=== PATIENT | male | born 1985 | race Caucasian/White ===

== ENCOUNTER 2020-04-02 10:33 | Inpatient (IN) | payer MEDICAID, OTHER ==
[~2020-04-02] VITALS: Ht 170.2 cm; Wt 71.7 kg
[2020-04-02] MEDS ORDERED: SODIUM CHLORIDE 0.9% 1,000 ML IV ONE ×2 (11:07→12:51)
[2020-04-02 11:24] LABS: CLARITY URINE CLEAR (CLEAR); COLOR URINE DARK YELLOW (YELLOW); KETONES URINE 3+ (NEGATIVE); LEUKOCYTE ESTERASE URINE TRACE (NEGATIVE); NITRITE URINE NEGATIVE (NEGATIVE); OCCULT BLOOD URINE 2+ (NEGATIVE); PROTEIN URINE 2+ (NEGATIVE)
[2020-04-02 11:28] LABS: CHLORIDE 104 mEq/L (98-107)
[2020-04-02 11:32] LABS: ETHANOL BLOOD < 10 mg/dL
[2020-04-02 11:42] LABS: BASOPHILS % 0.2 % (0.0-2.0); EOSINOPHILS % 0.4 % (0.0-5.0); HEMATOCRIT. 44.9 % (42.0-52.0); HEMOGLOBIN. 15.2 g/dL (14.0-18.0); LYMPHOCYTES % 10.1 % (20.0-50.0); MEAN CORPUSCULAR HEMOGLOBIN 29.6 pg (28.0-32.0); MEAN CORPUSCULAR VOLUME 87.6 fL (80.0-94.0); MONOCYTES % 8.3 % (2.0-8.0); PLATELET 216 x1000/uL (130-400); RED BLOOD CELL COUNT 5.12 mill/uL (4.7-6.1)
[2020-04-02 11:48] LABS: CREATINE KINASE 2195 IU/L (39-308)
[2020-04-02 12:08] LABS: *AMPHETAMINES SCREEN URINE NEGATIVE (NEGATIVE); *BARBITURATES SCREEN URINE NEGATIVE (NEGATIVE); *BENZODIAZEPINES SCREEN URINE NEGATIVE (NEGATIVE); *COCAINE SCREEN URINE NEGATIVE (NEGATIVE); CANNABINOID URINE SCREEN PRESUMTIVE POSITIVE (NEGATIVE); METHADONE URINE SCREEN NEGATIVE (NEGATIVE); OPIATES URINE SCREEN NEGATIVE (NEGATIVE); PHENCYCLIDINE URINE SCREEN NEGATIVE (NEGATIVE)
[2020-04-02] MEDS ORDERED: DOCUSATE SODIUM 100MG CAPSULE PO PRN (15:00)
[2020-04-02] MEDS ORDERED: ACETAMINOPHEN 325MG TABLET PO PRN (15:00)
[2020-04-02] MEDS ORDERED: MAGNESIUM/ALUMINUM HYDROXIDE/SIMETHICONE 30ML UDC PO PRN (15:00)
[2020-04-02] MEDS ORDERED: CLONIDINE 0.1MG TABLET PO PRN (15:00)
[2020-04-02] MEDS ORDERED: GUAIFENESIN 200MG/10ML SUGAR FREE UDC PO PRN (15:00)
[2020-04-02] MEDS: SODIUM CHLORIDE 0.9% 1,000 ML IV SCH (16:10)
[2020-04-02] MEDS: LORAZEPAM 2MG/ML CPJ IV PRN (19:29)
[2020-04-02 23:59] LABS: CREATINE KINASE 2320 IU/L (39-308)
[2020-04-03] MEDS: HYDROMORPHONE HCL/PF 2MG/ML CPJ IV PRN ×2 (00:16→01:16)
[2020-04-03 05:42] LABS: BASOPHILS % 0.5 % (0.0-2.0); EOSINOPHILS % 2.6 % (0.0-5.0); HEMATOCRIT. 38.5 % (42.0-52.0); HEMOGLOBIN. 13.1 g/dL (14.0-18.0); LYMPHOCYTES % 24.1 % (20.0-50.0); MEAN CORPUSCULAR HEMOGLOBIN 30.3 pg (28.0-32.0); MEAN CORPUSCULAR VOLUME 88.7 fL (80.0-94.0); MEAN PLATELET VOLUME 8.5 fl (7.4-10.4); MONOCYTES % 10.8 % (2.0-8.0); PLATELET 167 x1000/uL (130-400); RED BLOOD CELL COUNT 4.33 mill/uL (4.7-6.1); RED CELL DISTRIBUTION WIDTH 13.9 % (11.6-14.6)
[2020-04-03 05:54] LABS: CHLORIDE 109 mEq/L (98-107)
[2020-04-03 06:17] LABS: CREATINE KINASE 1947 IU/L (39-308)
[2020-04-03] MEDS: SODIUM CHLORIDE 0.9% 1,000 ML IV SCH ×2 (10:56→11:20)
[2020-04-03] MEDS: DEXT 5%/0.45% NACL 1000ML 1,000 ML IV SCH (12:00)
[2020-04-04] MEDS: DEXT 5%/0.45% NACL 1000ML 1,000 ML IV SCH ×2 (01:39→12:39)
[2020-04-04 09:00] VITALS: BP 146/78
[2020-04-04] MEDS: LORAZEPAM 2MG/ML CPJ IV PRN (11:15)
[2020-04-04] MEDS: HYDROMORPHONE HCL/PF 2MG/ML CPJ IV PRN (12:28)
[2020-04-04 14:22] LABS: CREATINE KINASE 1401 IU/L (39-308)
[2020-04-04 20:00] VITALS: BP 119/71
[2020-04-05] VITALS: BP 101/48
[2020-04-05] MEDS: DEXT 5%/0.45% NACL 1000ML 1,000 ML IV SCH ×2 (00:58→18:37)
[2020-04-05 04:00] VITALS: BP 110/64
[2020-04-05 16:00] VITALS: BP 130/68
[2020-04-05 20:00] VITALS: BP 138/81
[2020-04-06] VITALS: BP 139/90
[2020-04-06 04:00] VITALS: BP 139/90
[2020-04-06] MEDS: DEXT 5%/0.45% NACL 1000ML 1,000 ML IV SCH ×2 (06:39→20:58)
[2020-04-06 08:00] VITALS: BP 118/67
[2020-04-06 12:00] VITALS: BP 134/77
[2020-04-06 16:00] VITALS: BP 164/74
[2020-04-06 20:00] VITALS: BP 132/71
[2020-04-06] MEDS: LORAZEPAM 2MG/ML CPJ IV PRN (20:58)
[2020-04-06] MEDS: ONDANSETRON HCL 4MG/2ML INJ IV PRN (21:15)
[2020-04-07] VITALS: BP 119/80
[2020-04-07 08:00] VITALS: BP 101/44
[2020-04-07 12:00] VITALS: BP 119/79
[2020-04-07 16:00] VITALS: BP 129/75
[2020-04-07 20:00] VITALS: BP 128/88
[2020-04-07] MEDS: ONDANSETRON HCL 4MG/2ML INJ IV PRN (20:06)
[2020-04-07] MEDS: LORAZEPAM 2MG/ML CPJ IV PRN (20:07)
[2020-04-08] VITALS: BP 122/72
[2020-04-08 04:00] VITALS: BP 124/75
[2020-04-08] MEDS: DEXT 5%/0.45% NACL 1000ML 1,000 ML IV SCH ×2 (04:10→18:30)
[2020-04-08] MEDS: LORAZEPAM 2MG/ML CPJ IV PRN ×2 (06:51→13:28)
[2020-04-08 08:00] VITALS: BP 96/50
[2020-04-08 12:00] VITALS: BP 127/86
[2020-04-08 16:00] VITALS: BP 117/72
[2020-04-08 20:00] VITALS: BP 103/61
[2020-04-09] VITALS: BP 102/60
[2020-04-09 04:00] VITALS: BP 108/57
[2020-04-09] MEDS: DEXT 5%/0.45% NACL 1000ML 1,000 ML IV SCH (05:31)
[2020-04-09 08:00] VITALS: BP 110/66
[2020-04-09] MEDS: LORAZEPAM 2MG/ML CPJ IV PRN ×2 (08:50→15:32)
[2020-04-09 12:00] VITALS: BP 102/55
[2020-04-09 16:00] VITALS: BP 129/92
[2020-04-09 20:00] VITALS: BP 109/60
[2020-04-09] MEDS: RISPERIDONE 1MG TABLET PO SCH (20:30)
[2020-04-10] VITALS: BP 90/57
[2020-04-10 04:00] VITALS: BP 101/62
[2020-04-10] MEDS: DEXT 5%/0.45% NACL 1000ML 1,000 ML IV SCH ×2 (04:29→17:20)
[2020-04-10] MEDS: RISPERIDONE 1MG TABLET PO SCH (08:16)
[2020-04-10 12:00] VITALS: BP 141/83
[2020-04-10 16:00] VITALS: BP 114/87
[2020-04-10 16:35] VITALS: BP 114/87
== END 2020-04-10 17:53 | disposition home or self-care (01) | DRG 52 ==
LOC: ER 10:33 → 6EST 13:28 → EDBEDREQSVC 04-03 14:27 → ENRESERV 04-03 21:41 → CANRESERV 04-03 21:41 → EDBEDREQSVC 04-03 22:19 → ENRESERV 04-04 07:48
PROVIDERS: ADMIT Hospitalist; ATTEND Hospitalist
DX: G92 Toxic encephalopathy (principal); I95.9 Hypotension, unspecified; M62.82 Rhabdomyolysis; E86.0 Dehydration; F12.90 Cannabis use, unspecified, uncomplicated; F09 Unspecified mental disorder due to known physiological condition; Z79.899 Other long term (current) drug therapy
CPT/HCPCS: 36415; 71045; 80053; 80305; 80307; 80320; 80329; 81003; 82550; 82962; 85025; 93005; 96361; 96374; 96375; 99291; J1170; J2060; J2405; J7030; G0480